=== PATIENT | female | born 1970 | race Caucasian/White ===

== ENCOUNTER 2016-09-07 10:59 | Emergency (ER) | payer BC ==
[2016-09-07] MEDS ORDERED: Sodium Chloride 0.9% 10 ML Syringe FLUSH PRN (11:10)
[2016-09-07] MEDS ORDERED: Sodium Chloride 0.9% 2.5 ML Syringe FLUSH PRN (11:10)
[2016-09-07] MEDS ORDERED: Aspirin 81 MG Tab.Chew PO ONE (11:10)
--- NOTE | 2016-09-07 11:14 | EDM.PDOC ---
<Mattie Brian - Last Filed: 09/07/16 11:43> ED HISTORY OF PRESENT ILLNESS - General Chief Complaint: Chest Pain Stated Complaint: CHEST PAIN Time Seen by Provider: 09/07/16 11:11 Source of Information: Reports: Patient History Limitations: Reports: No limitations - History of Present Illness INITIAL COMMENTS - FREE TEXT/NARRATIVE: HISTORY AND PHYSICAL: [46-year-old female sent in with sternal chest pain that occurred last night.] History of Present Illness: [The last month it has been several instances where midsternal chest pain has occurred her left arm has gotten numb and then resolve. She has not been evaluated for this. SHe does report shortness of breath and diaphoresis last night. SHe has shortness of breath with walking No known family history of heart disease Mother is alive with no heart problem Father 3 years ago and she is unaware of the cause] Review of Systems: As per history of present illness and below otherwise all systems reviewed and negative. Past medical history: As per history of present illness and as reviewed below otherwise noncontributory. Surgical history: As per history of present illness and as reviewed below otherwise noncontributory. Social history: No reported history of drug or alcohol abuse. Family history: As per history of present illness and as reviewed below otherwise noncontributory. Physical exam: Alert anxious female who is obese. Answering questions appropriately HEENT: Atraumatic, normocehpalic, pupils reactive, negative for conjunctival pallor or scleral icterus, mucous membranes moist, throat clear, neck supple, nontender, trachea midline. Lungs: Clear to auscultation, breath sounds equal bilaterally, chest non tender. Lungs are mildly diminished Heart: S1S2, regular, negative for clicks, rubs, or JVD. Abdomen: Soft, nondistended, nontender. Negative for masses or hepatossplenmegaly. Negative for costovertebral tenderness. Pelvis: Stable nontender. Genitourinary: Deferred. Rectal: Deferred Extremities: Atraumatic, negative for cords or calf pain. Good sensation to hands. Neurovascular unremarkable. Neuro: Awake, alert, oriented. Cranial nerves II through XII unremarkable. Cerebellum unremarkable. Motor and sensory unremarkable throughout. Exam nonfocal. I discussed the concerns with the elevated troponin with the patient and her the implications associated with this and the need for expert followup care. I have discussed her case with Dr. Holland operations advisor at [facility] in [place] and he has accepted the patient for direct admit. Dr. Beal has kindly discussed with the patient and her in the concerns with the elevated troponin level. Lovenox has been given. Nitro paste Diagnostics: [CBC CMP amylase lipase troponin PT/INR] Therapeutics: [Normal saline aspirin] Impression: [] Atypical chest pain Plan: [Transfer to [facility] per ground ambulance] Definitive disposition and diagnosis as appropriate pending reevaluation and review of above. Timing/Duration: Reports: Week(s): Severity: mild Location, General: Reports: chest Quality: Reports: Ache Improves with: Reports: None Worsens with: Reports: None - Related Data Allergies/ADRs: Allergies Allergy/AdvReac Type Severity Reaction Status Date / Time No Known Allergies Allergy Verified 09/07/16 11:12 Home Meds: Home Meds . [No Known Home Meds] 09/07/16 [History] ED ROS GENERAL - Review of Systems Review Of Systems: ROS reveals no pertinent complaints other than HPI. ED EXAM, GENERAL - Physical Exam Exam: See Below Course - Vital Signs Last Recorded V/S: Last Vital Signs Temp 36.6 C 09/07/16 11:00 Pulse 80 09/07/16 11:51 Resp 18 09/07/16 11:51 BP 138/91 H 09/07/16 11:51 Pulse Ox 96 09/07/16 11:51 - Orders/Labs/Meds Orders: Active Orders 24 hr Category Date Time Status Cardiac Monitoring [RC] . DIRECTED Care 09/07/16 11:09 Active EKG Documentation Completion [RC] STAT Care 09/07/16 11:09 Active Oxygen Therapy, ED [RC] ASDIRECTED Care 09/07/16 11:09 Active Sodium Chloride 0.9% [Saline Flush] Med 09/07/16 11:10 Active 10 ml FLUSH ASDIRECTED PRN Sodium Chloride 0.9% [Saline Flush] Med 09/07/16 11:10 Active 2.5 ml FLUSH ASDIRECTED PRN Saline Lock Insert [OM.PC] Stat Oth 09/07/16 11:09 Ordered Medication Orders Sodium Chloride (Saline Flush) 10 ml FLUSH ASDIRECTED PRN PRN Reason: Keep Vein Open Sodium Chloride (Saline Flush) 2.5 ml FLUSH ASDIRECTED PRN PRN Reason: Keep Vein Open Labs: Laboratory Tests 09/07/16 09/07/16 09/07/16 Range/Units 11:10 11:10 11:10 WBC 7.93 (4.0-11.0) K/uL RBC 5.04 (4.30-5.90) M/uL Hgb 15.5 (12.0-16.0) g/dL Hct 46.9 H (36.0-46.0) % MCV 93.1 (80.0-98.0) fL MCH 30.8 (27.0-32.0) pg MCHC 33.0 (31.0-37.0) g/dL RDW Std Deviation 44.7 (28.0-62.0) fl RDW Coeff of Gregory 13 (11.0-15.0) % Plt Count 130 L (150-400) K/uL MPV 8.90 (7.40-12.00) fL Neut % (Auto) 78.4 (48.0-80.0) % Lymph % (Auto) 15.3 L (16.0-40.0) % [place] % (Auto) 5.2 (0.0-15.0) % Eos % (Auto) 0.6 (0.0-7.0) % Baso % (Auto) 0.5 (0.0-1.5) % Neut # (Auto) 6.2 H (1.4-5.7) K/uL Lymph # (Auto) 1.2 (0.6-2.4) K/uL [place] # (Auto) 0.4 (0.0-0.8) K/uL Eos # (Auto) 0.1 (0.0-0.7) K/uL Baso # (Auto) 0.0 (0.0-0.1) K/uL Nucleated RBC % 0.0 /100WBC Nucleated RBCs # 0 K/uL INR 0.96 (0.86-1.11) Sodium 140 (136-146) mmol/L Potassium 3.5 (3.5-5.1) mmol/L Chloride 110 (98-110) mmol/L Carbon Dioxide 18 L (21-31) mmol/L BUN 12 (6.0-23.0) mg/dL Creatinine 0.8 (0.6-1.5) mg/dL Est Cr Clr Drug Dosing 84.54 mL/min Estimated GFR (MDRD) > 60.0 ml/min Glucose 240 H (60-110) mg/dL Calcium 8.8 (8.8-10.8) mg/dL Total Bilirubin 0.5 (0.1-1.5) mg/dL AST 28 (5-40) IU/L ALT 23 (8-54) IU/L Alkaline Phosphatase 95 (40-150) Troponin I (0.0-0.29) NG/ML Total Protein 6.6 (6.0-8.0) g/dL Albumin 3.8 (3.5-5.0) g/dL Globulin 2.8 (2.0-3.5) g/dL Albumin/Globulin Ratio 1.4 (1.3-2.8) Amylase 38 (10-90) U/L Lipase 14 (7-80) U/L Urine Color Urine Appearance Urine pH (5.0-8.0) Ur Specific [place] (1.001-1.035) Urine Protein (NEGATIVE) mg/dL Urine Glucose (UA) (NEGATIVE) mg/dL Urine Ketones (NEGATIVE) mg/dL Urine Occult Blood (NEGATIVE) Urine Nitrite (NEGATIVE) Urine Bilirubin (NEGATIVE) Urine Urobilinogen (<2.0) EU/dL Ur Leukocyte Esterase (NEGATIVE) Urine RBC (0-2/HPF) Urine WBC (0-5/HPF) Ur Epithelial Cells (NONE-FEW) Urine Bacteria (NEGATIVE) 09/07/16 09/07/16 Range/Units 11:10 11:57 WBC (4.0-11.0) K/uL RBC (4.30-5.90) M/uL Hgb (12.0-16.0) g/dL Hct (36.0-46.0) % MCV (80.0-98.0) fL MCH (27.0-32.0) pg MCHC (31.0-37.0) g/dL RDW Std Deviation (28.0-62.0) fl RDW Coeff of Gregory (11.0-15.0) % Plt Count (150-400) K/uL MPV (7.40-12.00) fL Neut % (Auto) (48.0-80.0) % Lymph % (Auto) (16.0-40.0) % [place] % (Auto) (0.0-15.0) % Eos % (Auto) (0.0-7.0) % Baso % (Auto) (0.0-1.5) % Neut # (Auto) (1.4-5.7) K/uL Lymph # (Auto) (0.6-2.4) K/uL [place] # (Auto) (0.0-0.8) K/uL Eos # (Auto) (0.0-0.7) K/uL Baso # (Auto) (0.0-0.1) K/uL Nucleated RBC % /100WBC Nucleated RBCs # K/uL INR (0.86-1.11) Sodium (136-146) mmol/L Potassium (3.5-5.1) mmol/L Chloride (98-110) mmol/L Carbon Dioxide (21-31) mmol/L BUN (6.0-23.0) mg/dL Creatinine (0.6-1.5) mg/dL Est Cr Clr Drug Dosing mL/min Estimated GFR (MDRD) ml/min Glucose (60-110) mg/dL Calcium (8.8-10.8) mg/dL Total Bilirubin (0.1-1.5) mg/dL AST (5-40) IU/L ALT (8-54) IU/L Alkaline Phosphatase (40-150) Troponin I 1.73 H* (0.0-0.29) NG/ML Total Protein (6.0-8.0) g/dL Albumin (3.5-5.0) g/dL Globulin (2.0-3.5) g/dL Albumin/Globulin Ratio (1.3-2.8) Amylase (10-90) U/L Lipase (7-80) U/L Urine Color YELLOW Urine Appearance CLEAR Urine pH 6.0 (5.0-8.0) Ur Specific [place] 1.025 (1.001-1.035) Urine Protein NEGATIVE (NEGATIVE) mg/dL Urine Glucose (UA) 250 H (NEGATIVE) mg/dL Urine Ketones NEGATIVE (NEGATIVE) mg/dL Urine Occult Blood TRACE-INTACT (NEGATIVE) Urine Nitrite NEGATIVE (NEGATIVE) Urine Bilirubin NEGATIVE (NEGATIVE) Urine Urobilinogen 0.2 (<2.0) EU/dL Ur Leukocyte Esterase SMALL (NEGATIVE) Urine RBC 1-2 (0-2/HPF) Urine WBC 45-50 (0-5/HPF) Ur Epithelial Cells FEW (NONE-FEW) Urine Bacteria FEW (NEGATIVE) Meds: Medications Generic Name Dose Route Start Last Admin Trade Name Freq PRN Reason Stop Dose Admin Sodium Chloride 10 ml 09/07/16 11:10 Saline Flush FLUSH ASDIRECTED PRN Keep Vein Open Sodium Chloride 2.5 ml 09/07/16 11:10 Saline Flush FLUSH ASDIRECTED PRN Keep Vein Open Discontinued Medications Generic Name Dose Route Start Last Admin Trade Name Freq PRN Reason Stop Dose Admin Aspirin 324 mg 09/07/16 11:10 09/07/16 11:15 Aspirin PO 09/07/16 11:11 324 mg ONETIME ONE Administration Enoxaparin Sodium 125 mg 09/07/16 11:42 09/07/16 11:49 Lovenox SUBCUT 09/07/16 11:43 125 mg ONETIME ONE Administration Nitroglycerin 1 gm 09/07/16 11:41 09/07/16 11:47 Nitro-Bid 2% TOP 09/07/16 11:42 1 gm ONETIME ONE Administration Departure - Departure Time of Disposition: 11:47 Disposition: DC/Tfer to Acute Hospital 02 Reason for Transfer *Q: Primary PCI Indicated Condition: good Clinical Impression: Acute coronary syndrome Acute myocardial infarction Qualifiers: Myocardial infarction ST status: non-ST elevation myocardial infarction Qualified Code(s): I21.4 - Non-ST elevation (NSTEMI) myocardial infarction Referrals: PCP,None [Primary Care Provider] - Forms: ED Department Discharge <Divya Beal - Last Filed: 09/07/16 12:43> ED HISTORY OF PRESENT ILLNESS - History of Present Illness INITIAL COMMENTS - FREE TEXT/NARRATIVE: Please note that the patient had a positive troponin so please addend the above impression to read Non- stemi OR ED ROS GENERAL - Review of Systems Review Of Systems: ROS reveals no pertinent complaints other than HPI. ED EXAM, GENERAL - Physical Exam Exam: See Below (See dictation) Departure - Departure Reason for Transfer *Q: Primary PCI Indicated Condition: good
--- NOTE | 2016-09-07 11:35 | CR ---
EXAMINATION: Portable chest radiograph. HISTORY: Shortness of breath. FINDINGS: The trachea is midline. The cardiomediastinal silhouette is within normal limits. No pulmonary infil trates, effusions or pneumothorax. Osseous structures appear unremarkable. IMPRESSION: No acute cardiopulmonary process.
[2016-09-07] MEDS ORDERED: Nitroglycerin 2% Oint 1 GM UD Packet TOP ONE (11:41)
[2016-09-07] MEDS ORDERED: Enoxaparin 150 MG/1 ML Syringe SUBCUT ONE (11:42)
[2016-09-07 11:49] LABS: CHLORIDE,CL 110 mmol/L (98-110); SODIUM,NA 140 mmol/L (136-146)
[2016-09-07 12:54] VITALS: BP 146/100
== END 2016-09-07 12:27 ==
LOC: MW.ED 10:59
DX: I24.9 Acute ischemic heart disease, unspecified (principal); I21.4 Non-ST elevation (NSTEMI) myocardial infarction
CPT/HCPCS: 71010; 80053; 81001; 82150; 83690; 84484; 85025; 85610; 93005; 99285; A9270; J1650

== ENCOUNTER 2016-09-18 13:48 | Emergency (ER) | payer BC ==
[2016-09-18] MEDS ORDERED: Sodium Chloride 0.9% 1,000 ML IV ONE ×3 (13:58→17:00)
[2016-09-18] MEDS ORDERED: Acetaminophen 325 MG Tab PO ONE (13:58)
[2016-09-18] MEDS ORDERED: Sodium Chloride 0.9% 2.5 ML Syringe FLUSH PRN (13:58)
[2016-09-18] MEDS ORDERED: Sodium Chloride 0.9% 10 ML Syringe FLUSH PRN (13:58)
--- NOTE | 2016-09-18 14:17 | EDM.PDOC ---
ED HPI GENERAL MEDICAL PROBLEM - General Chief Complaint: Fever Stated Complaint: FEVER Time Seen by Provider: 09/18/16 13:54 - History of Present Illness INITIAL COMMENTS - FREE TEXT/NARRATIVE: HISTORY AND PHYSICAL: History of present illness: Patient is a 46-year-old white female with recent cardiac catheter with angioplasty presents with concern of fever sore throat she states that over last 24 hours. She denies chest pain nausea vomiting states her temperature at home was 102 on arrival here is 100.4 and no cough no shortness of breath no abdominal pain no urinary symptoms Review of systems: As per history of present illness and below otherwise all systems reviewed and negative. Past medical history: As per history of present illness and as reviewed below otherwise noncontributory. Surgical history: As per history of present illness and as reviewed below otherwise noncontributory. Social history: No reported history of drug or alcohol abuse. Family history: As per history of present illness and as reviewed below otherwise noncontributory. Physical exam: HEENT: Atraumatic, normocephalic, pupils reactive, negative for conjunctival pallor or scleral icterus, mucous membranes moist, throat clear, neck supple, nontender, trachea midline. Lungs: Clear to auscultation, breath sounds equal bilaterally, chest nontender. Heart: S1S2, regular, negative for clicks, rubs, or JVD. Abdomen: Soft, nondistended, nontender. Negative for masses or hepatosplenomegaly. Negative for costovertebral tenderness. Pelvis: Stable nontender. Genitourinary: Deferred. Rectal: Deferred. Extremities: Atraumatic, negative for cords or calf pain. Neurovascular unremarkable. Neuro: Awake, alert, oriented. Cranial nerves II through XII unremarkable. Cerebellum unremarkable. Motor and sensory unremarkable throughout. Exam nonfocal. Diagnostics: CBC CMP chest x-ray rapid strep influenza screen EKG UA blood culture x2 urine culture Therapeutics: Normal saline 1 L bolus Impression: #1 history coronary artery disease #2 history of recent angioplasty with stent placement #3 fever Definitive disposition and diagnosis as appropriate pending reevaluation and review of above. head Pain Score (Numeric/FACES): 8 - Related Data Allergies Allergy/AdvReac Type Severity Reaction Status Date / Time codeine Allergy Hives Verified 09/18/16 13:58 Penicillins Allergy Hives Verified 09/18/16 13:58 Home Meds: Home Meds Aspirin 2 tab PO DAILY 09/18/16 [History] Carvedilol 3.125 mg PO BID 09/18/16 [History] Furosemide 20 mg PO DAILY 09/18/16 [History] Lisinopril 5 mg PO DAILY 09/18/16 [History] Prasugrel HCl [Effient] 10 mg PO DAILY 09/18/16 [History] atorvaSTATin [Lipitor] 40 mg PO DAILY 09/18/16 [History] Past Medical History - Past Health History Medical/Surgical History: Denies Medical/Surgical History Social & Family History - Family History Family Medical History: Noncontributory - Tobacco Use Smoking Status *Q: Current Every Day Smoker Years of Tobacco use: 10 Packs/Tins Daily: 0.5 - Recreational Drug Use Recreational Drug Use: No ED ROS GENERAL - Review of Systems Review Of Systems: ROS reveals no pertinent complaints other than HPI. ED EXAM, GENERAL - Physical Exam Exam: See Below (See dictation) Course - Vital Signs Last Recorded V/S: Last Vital Signs Temp 37.1 C 09/18/16 16:57 Pulse 71 09/18/16 17:09 Resp 18 09/18/16 16:57 BP 100/56 L 09/18/16 17:09 Pulse Ox 95 09/18/16 17:09 - Orders/Labs/Meds Orders: Active Orders 24 hr Category Date Time Status EKG Documentation Completion [RC] STAT Care 09/18/16 13:57 Active Pulse Oximetry [RC] ASDIRECTED Care 09/18/16 13:57 Active CULTURE BLOOD [BC] Stat Lab 09/18/16 14:10 Received CULTURE BLOOD [BC] Stat Lab 09/18/16 14:49 Received CULTURE URINE [RM] Stat Lab 09/18/16 15:00 Received Sodium Chloride 0.9% [Normal Saline] 1,000 ml Med 09/18/16 17:00 Active IV .Bolus Sodium Chloride 0.9% [Saline Flush] Med 09/18/16 13:58 Active 10 ml FLUSH ASDIRECTED PRN Sodium Chloride 0.9% [Saline Flush] Med 09/18/16 13:58 Active 2.5 ml FLUSH ASDIRECTED PRN Blood Culture x2 Reflex Set [OM.PC] Stat Oth 09/18/16 13:58 Ordered Saline Lock Insert [OM.PC] Stat Oth 09/18/16 13:57 Ordered Medication Orders Sodium Chloride (Normal Saline) 1,000 mls @ 999 mls/hr IV .Bolus ONE Stop: 09/18/16 18:00 Last Admin: 09/18/16 17:08 Dose: 999 mls/hr Sodium Chloride (Saline Flush) 10 ml FLUSH ASDIRECTED PRN PRN Reason: Keep Vein Open Sodium Chloride (Saline Flush) 2.5 ml FLUSH ASDIRECTED PRN PRN Reason: Keep Vein Open Labs: Laboratory Tests 09/18/16 09/18/16 09/18/16 Range/Units 14:10 14:10 14:10 WBC 13.62 H (4.0-11.0) K/uL RBC 4.63 (4.30-5.90) M/uL Hgb 14.1 (12.0-16.0) g/dL Hct 43.2 (36.0-46.0) % MCV 93.3 (80.0-98.0) fL MCH 30.5 (27.0-32.0) pg MCHC 32.6 (31.0-37.0) g/dL RDW Std Deviation 44.8 (28.0-62.0) fl RDW Coeff of Gregory 13 (11.0-15.0) % Plt Count 141 L (150-400) K/uL MPV 9.00 (7.40-12.00) fL Neut % (Auto) 81.0 H (48.0-80.0) % Lymph % (Auto) 11.1 L (16.0-40.0) % [place] % (Auto) 7.6 (0.0-15.0) % Eos % (Auto) 0.1 (0.0-7.0) % Baso % (Auto) 0.2 (0.0-1.5) % Neut # (Auto) 11.0 H (1.4-5.7) K/uL Lymph # (Auto) 1.5 (0.6-2.4) K/uL [place] # (Auto) 1.0 H (0.0-0.8) K/uL Eos # (Auto) 0.0 (0.0-0.7) K/uL Baso # (Auto) 0.0 (0.0-0.1) K/uL Nucleated RBC % 0.0 /100WBC Nucleated RBCs # 0 K/uL INR 1.05 (0.86-1.11) Lactate 1.7 (0.20-2.00) mmol/L Sodium (136-146) mmol/L Potassium (3.5-5.1) mmol/L Chloride (98-110) mmol/L Carbon Dioxide (21-31) mmol/L BUN (6.0-23.0) mg/dL Creatinine (0.6-1.5) mg/dL Est Cr Clr Drug Dosing mL/min Estimated GFR (MDRD) ml/min Glucose (60-110) mg/dL Calcium (8.8-10.8) mg/dL Total Bilirubin (0.1-1.5) mg/dL AST (5-40) IU/L ALT (8-54) IU/L Alkaline Phosphatase (40-150) Total Protein (6.0-8.0) g/dL Albumin (3.5-5.0) g/dL Globulin (2.0-3.5) g/dL Albumin/Globulin Ratio (1.3-2.8) Urine Color Urine Appearance Urine pH (5.0-8.0) Ur Specific [place] (1.001-1.035) Urine Protein (NEGATIVE) mg/dL Urine Glucose (UA) (NEGATIVE) mg/dL Urine Ketones (NEGATIVE) mg/dL Urine Occult Blood (NEGATIVE) Urine Nitrite (NEGATIVE) Urine Bilirubin (NEGATIVE) Urine Urobilinogen (<2.0) EU/dL Ur Leukocyte Esterase (NEGATIVE) Urine RBC (0-2/HPF) Urine WBC (0-5/HPF) Ur Epithelial Cells (NONE-FEW) Urine Bacteria (NEGATIVE) Urinalysis Comment 09/18/16 09/18/16 Range/Units 14:10 15:00 WBC (4.0-11.0) K/uL RBC (4.30-5.90) M/uL Hgb (12.0-16.0) g/dL Hct (36.0-46.0) % MCV (80.0-98.0) fL MCH (27.0-32.0) pg MCHC (31.0-37.0) g/dL RDW Std Deviation (28.0-62.0) fl RDW Coeff of [place] (11.0-15.0) % Plt Count (150-400) K/uL MPV (7.40-12.00) fL Neut % (Auto) (48.0-80.0) % Lymph % (Auto) (16.0-40.0) % [place] % (Auto) (0.0-15.0) % Eos % (Auto) (0.0-7.0) % Baso % (Auto) (0.0-1.5) % Neut # (Auto) (1.4-5.7) K/uL Lymph # (Auto) (0.6-2.4) K/uL [place] # (Auto) (0.0-0.8) K/uL Eos # (Auto) (0.0-0.7) K/uL Baso # (Auto) (0.0-0.1) K/uL Nucleated RBC % /100WBC Nucleated RBCs # K/uL INR (0.86-1.11) Lactate (0.20-2.00) mmol/L Sodium 136 (136-146) mmol/L Potassium 4.2 (3.5-5.1) mmol/L Chloride 103 (98-110) mmol/L Carbon Dioxide 22 (21-31) mmol/L BUN 12 (6.0-23.0) mg/dL Creatinine 0.8 (0.6-1.5) mg/dL Est Cr Clr Drug Dosing 90.85 mL/min Estimated GFR (MDRD) > 60.0 ml/min Glucose 98 (60-110) mg/dL Calcium 9.1 (8.8-10.8) mg/dL Total Bilirubin 1.1 (0.1-1.5) mg/dL AST 12 (5-40) IU/L ALT 17 (8-54) IU/L Alkaline Phosphatase 92 (40-150) Total Protein 6.8 (6.0-8.0) g/dL Albumin 3.9 (3.5-5.0) g/dL Globulin 2.9 (2.0-3.5) g/dL Albumin/Globulin Ratio 1.3 (1.3-2.8) Urine Color YELLOW Urine Appearance CLEAR Urine pH 5.5 (5.0-8.0) Ur Specific [place] 1.010 (1.001-1.035) Urine Protein NEGATIVE (NEGATIVE) mg/dL Urine Glucose (UA) NEGATIVE (NEGATIVE) mg/dL Urine Ketones NEGATIVE (NEGATIVE) mg/dL Urine Occult Blood NEGATIVE (NEGATIVE) Urine Nitrite NEGATIVE (NEGATIVE) Urine Bilirubin NEGATIVE (NEGATIVE) Urine Urobilinogen 0.2 (<2.0) EU/dL Ur Leukocyte Esterase TRACE (NEGATIVE) Urine RBC 0-1 (0-2/HPF) Urine WBC 0-1 (0-5/HPF) Ur Epithelial Cells OCCASIONAL (NONE-FEW) Urine Bacteria FEW (NEGATIVE) Urinalysis Comment Meds: Medications Generic Name Dose Route Start Last Admin Trade Name Freq PRN Reason Stop Dose Admin Sodium Chloride 1,000 mls @ 999 mls/hr 09/18/16 17:00 09/18/16 17:08 Normal Saline IV 09/18/16 18:00 999 mls/hr .Bolus ONE Administration Sodium Chloride 10 ml 09/18/16 13:58 Saline Flush FLUSH ASDIRECTED PRN Keep Vein Open Sodium Chloride 2.5 ml 09/18/16 13:58 Saline Flush FLUSH ASDIRECTED PRN Keep Vein Open Discontinued Medications Generic Name Dose Route Start Last Admin Trade Name Freq PRN Reason Stop Dose Admin Acetaminophen 650 mg 09/18/16 13:58 09/18/16 14:22 Tylenol PO 09/18/16 13:59 650 mg NOW ONE Administration Sodium Chloride 1,000 mls @ 999 mls/hr 09/18/16 13:58 09/18/16 14:16 Normal Saline IV 09/18/16 14:58 999 mls/hr STAT ONE Administration Sodium Chloride 1,000 mls @ 999 mls/hr 09/18/16 15:31 09/18/16 15:38 Normal Saline IV 09/18/16 16:31 999 mls/hr .Bolus ONE Administration Ceftriaxone Sodium/Dextrose 1 50 mls @ 100 mls/hr 09/18/16 15:33 09/18/16 15: 42 gm/ Premix IV 09/18/16 16:02 100 mls/hr ONETIME ONE Administration Departure - Departure Time of Disposition: 17:17 Disposition: Home, Self-Care 01 Condition: good Clinical Impression: Streptococcal pharyngitis, Dehydration - Discharge Information Forms: ED Department Discharge Additional Instructions: The following information is given to patients seen in the emergency department who are being discharged to home. This information is to outline your options for follow-up care. We provide all patients seen in our emergency department with a follow-up referral. The need for follow-up, as well as the timing and circumstances, are variable depending upon the specifics of your emergency department visit. If you don't have a primary care physician on staff, we will provide you with a referral. We always advise you to contact your personal physician following an emergency department visit to inform them of the circumstance of the visit and for follow-up with them and/or the need for any referrals to a consulting specialist. The emergency department will also refer you to a specialist when appropriate. This referral assures that you have the opportunity for followup care with a specialist. All of these measure are taken in an effort to provide you with optimal care, which includes your followup. Under all circumstances we always encourage you to contact your private physician who remains a resource for coordinating your care. When calling for followup care, please make the office aware that this follow-up is from your recent emergency room visit. If for any reason you are refused follow-up, please contact the [facility] emergency department at and asked to speak to the emergency department charge nurse. Keflex as prescribed push fluids follow up primary medical doctor in one to 2 days return as needed as discussed - My Orders Last 24 Hours: My Active Orders 09/18/16 13:57 EKG Documentation Completion [RC] STAT Pulse Oximetry [RC] ASDIRECTED Saline Lock Insert [OM.PC] Stat 09/18/16 13:58 Sodium Chloride 0.9% [Saline Flush] 10 ml FLUSH ASDIRECTED PRN Sodium Chloride 0.9% [Saline Flush] 2.5 ml FLUSH ASDIRECTED PRN Blood Culture x2 Reflex Set [OM.PC] Stat 09/18/16 14:10 CULTURE BLOOD [BC] Stat 09/18/16 14:49 CULTURE BLOOD [BC] Stat 09/18/16 15:00 CULTURE URINE [RM] Stat 09/18/16 17:00 Sodium Chloride 0.9% [Normal Saline] 1,000 ml IV .Bolus - Assessment/Plan Last 24 Hours: My Active Orders 09/18/16 13:57 EKG Documentation Completion [RC] STAT Pulse Oximetry [RC] ASDIRECTED Saline Lock Insert [OM.PC] Stat 09/18/16 13:58 Sodium Chloride 0.9% [Saline Flush] 10 ml FLUSH ASDIRECTED PRN Sodium Chloride 0.9% [Saline Flush] 2.5 ml FLUSH ASDIRECTED PRN Blood Culture x2 Reflex Set [OM.PC] Stat 09/18/16 14:10 CULTURE BLOOD [BC] Stat 09/18/16 14:49 CULTURE BLOOD [BC] Stat 09/18/16 15:00 CULTURE URINE [RM] Stat 09/18/16 17:00 Sodium Chloride 0.9% [Normal Saline] 1,000 ml IV .Bolus
--- NOTE | 2016-09-18 14:45 | CR ---
EXAMINATION: Two-view chest (PA and Lateral views). HISTORY: Shortness of breath. FINDINGS: The trachea is midline. The cardiomediastinal silhouette is within normal limits. No pulmonary infil trates, effusions or pneumothorax. Osseous structures appear unremarkable. IMPRESSION: No acute cardiopulmonary process.
[2016-09-18 15:05] LABS: CHLORIDE,CL 103 mmol/L (98-110); SODIUM,NA 136 mmol/L (136-146)
[2016-09-18] MEDS ORDERED: cefTRIAXone 1 GM in Premix Bag 1 BAG IV ONE (15:33)
[2016-09-18 18:04] VITALS: BP 110/63
== END 2016-09-18 17:55 | disposition home or self-care (01) ==
LOC: MW.ED 13:48
DX: J02.0 Streptococcal pharyngitis (principal); E86.0 Dehydration; I25.10 Atherosclerotic heart disease of native coronary artery without angina pectoris; F17.210 Nicotine dependence, cigarettes, uncomplicated; Z88.0 Allergy status to penicillin; Z79.82 Long term (current) use of aspirin; Z95.5 Presence of coronary angioplasty implant and graft; Z88.5 Allergy status to narcotic agent
CPT/HCPCS: 36415; 71020; 80053; 81001; 83605; 85025; 85610; 87040; 87086; 87804; 87880; 93005; 96361; 96365; 99284; A9270; J0696; J7040

== ENCOUNTER 2018-01-20 21:00 | Emergency (ER) | payer BC ==
[2018-01-20] MEDS ORDERED: Sodium Chloride 0.9% 10 ML Syringe FLUSH PRN (21:16)
[2018-01-20] MEDS ORDERED: Sodium Chloride 0.9% 2.5 ML Syringe FLUSH PRN (21:16)
--- NOTE | 2018-01-20 21:19 | EDM.PDOC ---
ED HPI GENERAL MEDICAL PROBLEM - General Chief Complaint: Respiratory Problem Stated Complaint: TROUBLE BREATHING. Time Seen by Provider: 01/20/18 21:09 - History of Present Illness INITIAL COMMENTS - FREE TEXT/NARRATIVE: HISTORY AND PHYSICAL: History of present illness: The patient is a 48-year-old female with a history of hypertension hypercholesterolemia and coronary artery disease with angioplasty and 3 stents in August 2016 at [facility] and who presents with complaints of a dry hacking cough for 2 days. She says she only has chest pain when she is coughing and she's had no fevers abdominal pain but she has had some posttussive vomiting. She has no back pain she's had no chills and she is a half a pack per day smoker of cigarettes. She's been eating and drinking normally. 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 She's had no leg pain or swelling. Patient has no pre-existing pulmonary issues but has been a longtime smoker. Patient is on anticoagulation therapy since her cardiac event and is unsure if she will come off. She's not having any bleeding issues. Review of systems: As per history of present illness and below otherwise all systems reviewed and negative. Past medical history: As per history of present illness and as reviewed below otherwise noncontributory. Surgical history: As per history of present illness and as reviewed below otherwise noncontributory. Social history: No reported history of drug or alcohol abuse. Family history: As per history of present illness and as reviewed below otherwise noncontributory. Physical exam: General: Well-developed well-nourished female who is overweight and nontoxic and speaking clearly in the ED. Vital signs have been reviewed by me HEENT: Atraumatic, normocephalic, negative for conjunctival pallor or scleral icterus, mucous membranes moist, throat clear, neck supple, nontender, trachea midline. Lungs: Clear to auscultation diminished in the bases bilaterally but no wheezing rales rhonchi, breath sounds equal bilaterally, chest nontender. Heart: S1S2, regular rate and rhythm no overt murmurs Abdomen: Soft, nondistended, nontender. Negative for masses or hepatosplenomegaly. NABS Pelvis: Stable nontender. Genitourinary: Deferred. Rectal: Deferred. Extremities: Atraumatic, negative for cords or calf pain. Neurovascular unremarkable. No pedal edema or leg asymmetry Neuro: Awake, alert, oriented. Cranial nerves II through XII unremarkable. Cerebellum unremarkable. Motor and sensory unremarkable throughout. Exam nonfocal. Diagnostics: EKG CBC CMP INR lactic acid troponin BNP chest x-ray Therapeutics: IV O2 monitor DuoNeb IV Medrol spacer and spacer teaching Patient will be given a spacer as well as a Medrol Dosepak and albuterol for home. She was up her cough medication which she declines. I've advised her on pushing hydration reducing and/or limiting smoking and following up with her provider. Impression: Acute Bronchitis Definitive disposition and diagnosis as appropriate pending reevaluation and review of above. Chest Pain Score (Numeric/FACES): 6 - Related Data Allergies Allergy/AdvReac Type Severity Reaction Status Date / Time codeine Allergy Hives Verified 01/20/18 21:13 Penicillins Allergy Hives Verified 01/20/18 21:13 Home Meds: Home Meds Aspirin 2 tab PO DAILY 09/18/16 [History] Carvedilol 3.125 mg PO BID 09/18/16 [History] Furosemide 20 mg PO DAILY 09/18/16 [History] Lisinopril 5 mg PO DAILY 09/18/16 [History] Prasugrel HCl [Effient] 10 mg PO DAILY 09/18/16 [History] atorvaSTATin [Lipitor] 40 mg PO DAILY 09/18/16 [History] Past Medical History - Past Health History Medical/Surgical History: Denies Medical/Surgical History Cardiovascular History: Reports: Afib, OH, Other (See Below) Other Cardiovascular History: CHF - Past Surgical History Cardiovascular Surgical History: Reports: Coronary Artery Stent Social & Family History - Family History Family Medical History: Noncontributory - Tobacco Use Smoking Status *Q: Current Every Day Smoker Years of Tobacco use: 30 Packs/Tins Daily: 0.5 - Caffeine Use Caffeine Use: Reports: None - Recreational Drug Use Recreational Drug Use: No ED ROS GENERAL - Review of Systems Review Of Systems: ROS reveals no pertinent complaints other than HPI. ED EXAM, GENERAL - Physical Exam Exam: See Below (see dictation) Course - Vital Signs Last Recorded V/S: Last Vital Signs Temp 36.2 C 01/20/18 21:20 Pulse 85 01/20/18 22:52 Resp 18 01/20/18 22:52 BP 122/74 01/20/18 22:52 Pulse Ox 94 L 01/20/18 22:52 - Orders/Labs/Meds Orders: Active Orders 24 hr Category Date Time Status Cardiac Monitoring [RC] . DIRECTED Care 01/20/18 21:16 Active Communication Order [RC] STAT Care 01/20/18 22:52 Active Communication Order [RC] STAT Care 01/20/18 23:24 Ordered EKG Documentation Completion [RC] STAT Care 01/20/18 21:16 Active Oxygen Therapy, ED [RC] ASDIRECTED Care 01/20/18 21:16 Active Pulse Oximetry [RC] ASDIRECTED Care 01/20/18 21:16 Active RT Aerosol Therapy [RC] ASDIRECTED Care 01/20/18 21:16 Active Chest 2V [CR] Stat Exams 01/20/18 21:16 Taken Sodium Chloride 0.9% [Saline Flush] Med 01/20/18 21:16 Active 10 ml FLUSH ASDIRECTED PRN Sodium Chloride 0.9% [Saline Flush] Med 01/20/18 21:16 Active 2.5 ml FLUSH ASDIRECTED PRN Saline Lock Insert [OM.PC] Stat Oth 01/20/18 21:16 Ordered Medication Orders Sodium Chloride (Saline Flush) 10 ml FLUSH ASDIRECTED PRN PRN Reason: Keep Vein Open Sodium Chloride (Saline Flush) 2.5 ml FLUSH ASDIRECTED PRN PRN Reason: Keep Vein Open Labs: Laboratory Tests 01/20/18 01/20/18 01/20/18 Range/Units 21:30 21:30 21:30 WBC 6.94 (4.0-11.0) K/uL RBC 5.00 (4.30-5.90) M/uL Hgb 15.4 (12.0-16.0) g/dL Hct 46.1 H (36.0-46.0) % MCV 92.2 (80.0-98.0) fL MCH 30.8 (27.0-32.0) pg MCHC 33.4 (31.0-37.0) g/dL RDW Std Deviation 44.6 (28.0-62.0) fl RDW Coeff of Gregory 13 (11.0-15.0) % Plt Count 130 L (150-400) K/uL MPV 9.10 (7.40-12.00) fL Neut % (Auto) 59.6 (48.0-80.0) % Lymph % (Auto) 28.7 (16.0-40.0) % [place] % (Auto) 9.1 (0.0-15.0) % Eos % (Auto) 1.9 (0.0-7.0) % Baso % (Auto) 0.7 (0.0-1.5) % Neut # (Auto) 4.1 (1.4-5.7) K/uL Lymph # (Auto) 2.0 (0.6-2.4) K/uL [place] # (Auto) 0.6 (0.0-0.8) K/uL Eos # (Auto) 0.1 (0.0-0.7) K/uL Baso # (Auto) 0.1 (0.0-0.1) K/uL Nucleated RBC % 0.0 /100WBC Nucleated RBCs # 0 K/uL INR 0.95 Lactate (0.20-2.00) mmol/L Sodium 140 (136-145) mmol/L Potassium 4.0 (3.5-5.1) mmol/L Chloride 105 (98-107) mmol/L Carbon Dioxide 25.2 (21.0-32.0) mmol/L BUN 14 (7.0-18.0) mg/dL Creatinine 1.0 (0.6-1.0) mg/dL Est Cr Clr Drug Dosing 71.12 mL/min Estimated GFR (MDRD) 58.9 ml/min Glucose 108 H (74-106) mg/dL Calcium 9.1 (8.5-10.1) mg/dL Total Bilirubin 0.5 (0.2-1.0) mg/dL AST 20 (15-37) IU/L ALT 31 (14-63) IU/L Alkaline Phosphatase 128 H (46-116) U/L Troponin I < 0.050 (0.000-0.056) ng/mL B-Natriuretic Peptide (<100) PG/ML Total Protein 6.7 (6.4-8.2) g/dL Albumin 3.6 (3.4-5.0) g/dL Globulin 3.1 (2.0-3.5) g/dL Albumin/Globulin Ratio 1.2 L (1.3-2.8) 01/20/18 01/20/18 Range/Units 21:30 21:30 WBC (4.0-11.0) K/uL RBC (4.30-5.90) M/uL Hgb (12.0-16.0) g/dL Hct (36.0-46.0) % MCV (80.0-98.0) fL MCH (27.0-32.0) pg MCHC (31.0-37.0) g/dL RDW Std Deviation (28.0-62.0) fl RDW Coeff of Gregory (11.0-15.0) % Plt Count (150-400) K/uL MPV (7.40-12.00) fL Neut % (Auto) (48.0-80.0) % Lymph % (Auto) (16.0-40.0) % [place] % (Auto) (0.0-15.0) % Eos % (Auto) (0.0-7.0) % Baso % (Auto) (0.0-1.5) % Neut # (Auto) (1.4-5.7) K/uL Lymph # (Auto) (0.6-2.4) K/uL [place] # (Auto) (0.0-0.8) K/uL Eos # (Auto) (0.0-0.7) K/uL Baso # (Auto) (0.0-0.1) K/uL Nucleated RBC % /100WBC Nucleated RBCs # K/uL INR Lactate 1.7 (0.20-2.00) mmol/L Sodium (136-145) mmol/L Potassium (3.5-5.1) mmol/L Chloride (98-107) mmol/L Carbon Dioxide (21.0-32.0) mmol/L BUN (7.0-18.0) mg/dL Creatinine (0.6-1.0) mg/dL Est Cr Clr Drug Dosing mL/min Estimated GFR (MDRD) ml/min Glucose (74-106) mg/dL Calcium (8.5-10.1) mg/dL Total Bilirubin (0.2-1.0) mg/dL AST (15-37) IU/L ALT (14-63) IU/L Alkaline Phosphatase (46-116) U/L Troponin I (0.000-0.056) ng/mL B-Natriuretic Peptide < 15 (<100) PG/ML Total Protein (6.4-8.2) g/dL Albumin (3.4-5.0) g/dL Globulin (2.0-3.5) g/dL Albumin/Globulin Ratio (1.3-2.8) Meds: Medications Generic Name Dose Route Start Last Admin Trade Name Freq PRN Reason Stop Dose Admin Sodium Chloride 10 ml 01/20/18 21:16 Saline Flush FLUSH ASDIRECTED PRN Keep Vein Open Sodium Chloride 2.5 ml 01/20/18 21:16 Saline Flush FLUSH ASDIRECTED PRN Keep Vein Open Discontinued Medications Generic Name Dose Route Start Last Admin Trade Name Freq PRN Reason Stop Dose Admin Albuterol/Ipratropium 3 ml 01/20/18 21:16 01/20/18 21:29 Duoneb 3.0-0.5 Mg/3 Ml NEB 01/20/18 21:17 3 ml ONETIME ONE Administration Methylprednisolone Sodium Succinate 125 mg 01/20/18 22:49 01/20/18 22:54 Solu-Medrol IVPUSH 01/20/18 22:50 125 mg ONETIME ONE Administration Departure - Departure Time of Disposition: 23:25 Disposition: Home, Self-Care 01 Condition: Good Clinical Impression: Acute bronchitis Qualifiers: Bronchitis organism: unspecified organism Qualified Code(s): J20.9 - Acute bronchitis, unspecified - Discharge Information Instructions: Acute Bronchitis, Adult, [id number] Referrals: PCP,None [Primary Care Provider] - Forms: ED Department Discharge Additional Instructions: The following information is given to patients seen in the emergency department who are being discharged to home. This information is to outline your options for follow-up care. We provide all patients seen in our emergency department with a follow-up referral. The need for follow-up, as well as the timing and circumstances, are variable depending upon the specifics of your emergency department visit. If you don't have a primary care physician on staff, we will provide you with a referral. We always advise you to contact your personal physician following an emergency department visit to inform them of the circumstance of the visit and for follow-up with them and/or the need for any referrals to a consulting specialist. The emergency department will also refer you to a specialist when appropriate. This referral assures that you have the opportunity for followup care with a specialist. All of these measure are taken in an effort to provide you with optimal care, which includes your followup. Under all circumstances we always encourage you to contact your private physician who remains a resource for coordinating your care. When calling for followup care, please make the office aware that this follow-up is from your recent emergency room visit. If for any reason you are refused follow-up, please contact the [facility] emergency department at and ask to speak to the emergency department charge nurse. [facility] Primary care- Internal Medicine and Family [address] [id number] Please use all medications as prescribed and use the spacer with the inhaler. Please call and follow-up with your provider in the clinic in the next few days for reevaluation and further care. Return to ER as needed and as discussed. Please try to reduce and/or quit smoking. Push hydration. You have been given an albuterol inhaler, Medrol Dosepak,via the [employer] and a prescription for Tessalon Perles that you can fill to take for your cough . - My Orders Last 24 Hours: My Active Orders 01/20/18 21:16 Cardiac Monitoring [RC] . DIRECTED EKG Documentation Completion [RC] STAT Oxygen Therapy, ED [RC] ASDIRECTED Pulse Oximetry [RC] ASDIRECTED RT Aerosol Therapy [RC] ASDIRECTED Chest 2V [CR] Stat Sodium Chloride 0.9% [Saline Flush] 10 ml FLUSH ASDIRECTED PRN Sodium Chloride 0.9% [Saline Flush] 2.5 ml FLUSH ASDIRECTED PRN Saline Lock Insert [OM.PC] Stat 01/20/18 22:52 Communication Order [RC] STAT 01/20/18 23:24 Communication Order [RC] STAT - Assessment/Plan Last 24 Hours: My Active Orders 01/20/18 21:16 Cardiac Monitoring [RC] . DIRECTED EKG Documentation Completion [RC] STAT Oxygen Therapy, ED [RC] ASDIRECTED Pulse Oximetry [RC] ASDIRECTED RT Aerosol Therapy [RC] ASDIRECTED Chest 2V [CR] Stat Sodium Chloride 0.9% [Saline Flush] 10 ml FLUSH ASDIRECTED PRN Sodium Chloride 0.9% [Saline Flush] 2.5 ml FLUSH ASDIRECTED PRN Saline Lock Insert [OM.PC] Stat 01/20/18 22:52 Communication Order [RC] STAT 01/20/18 23:24 Communication Order [RC] STAT
[2018-01-20] MEDS: Albuterol/Ipratropium 3.0-0.5 MG/3 ML Neb Soln NEB ONE (21:29)
[2018-01-20 22:06] LABS: CHLORIDE,CL 105 mmol/L (98-107); SODIUM,NA 140 mmol/L (136-145)
[2018-01-20] MEDS: methylPREDNISolone Sodium Succinate 125 MG/2 ML SDV IVPUSH ONE (22:54)
[2018-01-20 22:57] VITALS: BP 122/74
--- NOTE | 2018-01-21 12:56 | CR ---
EXAM DATE: 01/20/18 PATIENT'S AGE: 48 Patient: ROLANDO HOGAN Facility: [place], [place] Site . Site : 1970 Study: XRay Chest [id number]/[id number] 10:51:40 PM Ordering Physician: Emigdio Stokes Final Report: INDICATION: Shortness of breath, chest tightness TECHNIQUE: Chest 2 views. COMPARISON: 09/18/16 FINDINGS: Cardiovascular and mediastinum: Heart size and vasculature are normal in caliber and appearance. Mediastinum is within normal limits. Lungs and pleural spaces: Lungs are clear. No sign of infiltrate or mass. No sign of pleural effusion. No pneumothorax. Bones and soft tissues: No significant findings. IMPRESSION: Unremarkable chest. Dictated by: Ed Wen MD @ 01/20/2018 23:19:40 (Electronic Signature) Report Signed by Proxy. CABRINI MEDICAL CENTERCharlie
== END 2018-01-20 23:35 | disposition home or self-care (01) ==
LOC: MW.ED 21:00
DX: J20.9 Acute bronchitis, unspecified (principal); I11.0 Hypertensive heart disease with heart failure; I50.9 Heart failure, unspecified; E78.00 Pure hypercholesterolemia, unspecified; I25.10 Atherosclerotic heart disease of native coronary artery without angina pectoris; F17.210 Nicotine dependence, cigarettes, uncomplicated; I48.91 Unspecified atrial fibrillation; Z88.5 Allergy status to narcotic agent; Z95.5 Presence of coronary angioplasty implant and graft; Z88.0 Allergy status to penicillin; Z79.82 Long term (current) use of aspirin; Z79.899 Other long term (current) drug therapy
CPT/HCPCS: 36415; 71046; 80053; 83605; 83880; 84484; 85025; 85610; 96374; 99285; J2930; 94640; J7620-GY

== ENCOUNTER 2018-11-08 19:42 | Emergency (ER) | payer BC ==
[2018-11-08] MEDS ORDERED: Sodium Chloride 0.9% 10 ML Syringe FLUSH PRN (20:24)
[2018-11-08] MEDS ORDERED: Albuterol/Ipratropium 3.0-0.5 MG/3 ML Neb Soln NEB ONE (20:24)
[2018-11-08] MEDS ORDERED: Pantoprazole 40 MG Vial IVPUSH ONE (20:24)
[2018-11-08] MEDS ORDERED: Sodium Chloride 0.9% 1,000 ML IV ONE (20:24)
[2018-11-08] MEDS ORDERED: Ondansetron 4 MG/2 ML SDV IVPUSH ONE (20:24)
[2018-11-08] MEDS ORDERED: Sodium Chloride 0.9% 2.5 ML Syringe FLUSH PRN (20:24)
--- NOTE | 2018-11-08 20:28 | EDM.PDOC ---
ED HPI GENERAL MEDICAL PROBLEM - General Chief Complaint: Chest Pain Stated Complaint: PT HAS FLU SYMPTOMS Time Seen by Provider: 11/08/18 19:50 - History of Present Illness INITIAL COMMENTS - FREE TEXT/NARRATIVE: HISTORY AND PHYSICAL: History of present illness: The patient is a 48-year-old female who is known to this ED as she has been here before for bronchitis and asthma exacerbations as well as cardiac issues and she has a history of coronary artery disease with angioplasty and stents in August 2016, hypertension and hypercholesterolemia and is supposed to be on Effient , which she has not tolerated her meds in the last few days, and presents with 4 days of occasional cough, acid reflux symptoms, nausea vomiting and diarrhea as well as diffuse abdominal pain. She says she is not short of breath but she has had a hacking cough which is not her primary concern and she is more concerned about the nausea and vomiting and says that she has not been able to take anything by mouth for the last 2 days. She tried a site of workshop as well as tomato soup today and she did not tolerate it. She says that her diarrhea is watery and she had at least 3 episodes today and her abdominal pain is diffuse and not localized upper or lower right or left. She is only gone to the bathroom and urinated a couple of times today. She is not lightheaded or dizzy and she has no chest pain on my evaluation. She is a known smoker of half a pack a day and does have an inhaler at home for her asthma but has not used it. She says she has had an intermittent cough but she is not concerned about that and she's had no sore throat or nasal drainage. The patient says that she has not followed up with her dinkey brakeman at [facility] in about a year. Review of systems: As per history of present illness and below otherwise all systems reviewed and negative. Past medical history: As per history of present illness and as reviewed below otherwise noncontributory. Surgical history: As per history of present illness and as reviewed below otherwise noncontributory. Social history: No reported history of drug or alcohol abuse. Family history: As per history of present illness and as reviewed below otherwise noncontributory. Physical exam: General: Well-developed well-nourished overweight female who is nontoxic and speaking clearly in the ED. She is not breathless and vital signs are noted by me HEENT: Atraumatic, normocephalic, pupils reactive, negative for conjunctival pallor or scleral icterus, mucous membranes tacky, throat clear, neck supple, nontender, trachea midline. Lungs: Clear to auscultation with occasional wheeze at the bases right greater than left, breath sounds equal bilaterally, chest nontender. Heart: S1S2, regular rate and rhythm no overt murmurs, negative for clicks, rubs , or JVD. Abdomen: Soft, nondistended, nontender. Bowel sounds are hypoactive and on palpation I cannot elicit the pain and there is no tympany on percussion nor any rebound or guarding. Negative for masses or hepatosplenomegaly. Negative for costovertebral tenderness. Pelvis: Stable nontender. Genitourinary: Deferred. Rectal: Deferred. Extremities: Atraumatic, negative for cords or calf pain. Neurovascular unremarkable. No pedal edema or leg asymmetry Neuro: Awake, alert, oriented. Cranial nerves II through XII unremarkable. Cerebellum unremarkable. Motor and sensory unremarkable throughout. Exam nonfocal. Diagnostics: EKG abdominal films with chest x-ray UA with reflex CBC CMP amylase lipase troponin Therapeutics: IV IV fluids Zofran Protonix duo neb Patient refused her duo neb Please note that after all testing was ordered the patient refused all of the above x-rays labs and medications as well as IV placement and the only thing that she would allow us to do as the EKG. She is aware of my concerns and accepts them and says that as long as the EKG is okay she would like to go. She was offered ODT Zofran which she also refuses. Impression: Vomiting and diarrhea, abdominal pain refusing care Definitive disposition and diagnosis as appropriate pending reevaluation and review of above. chest Pain Score (Numeric/FACES): 5 abdomen Pain Score (Numeric/FACES): 7 - Related Data Allergies Allergy/AdvReac Type Severity Reaction Status Date / Time codeine Allergy Hives Verified 11/08/18 20:05 Penicillins Allergy Hives Verified 11/08/18 20:05 Home Meds: Home Meds Aspirin 1 tab PO DAILY 09/18/16 [History] Lisinopril 5 mg PO DAILY 09/18/16 [History] Prasugrel HCl [Effient] 10 mg PO DAILY 09/18/16 [History] atorvaSTATin [Lipitor] 40 mg PO DAILY 09/18/16 [History] Past Medical History - Past Health History Medical/Surgical History: Denies Medical/Surgical History Cardiovascular History: Reports: Afib, Heart Failure, OH, Stents Other Cardiovascular History: 3 stents on 08/2016 Respiratory History: Reports: None Gastrointestinal History: Reports: None Genitourinary History: Reports: None CHEMICAL CHECKER History: Reports: None Musculoskeletal History: Reports: None Neurological History: Reports: None Psychiatric History: Reports: None Endocrine/Metabolic History: Reports: Obesity/BMI 30+ Hematologic History: Reports: None Immunologic History: Reports: None Oncologic (Cancer) History: Reports: None Dermatologic History: Reports: None - Infectious Disease History Infectious Disease History: Reports: None - Past Surgical History Head Surgeries/Procedures: Reports: None Cardiovascular Surgical History: Reports: Coronary Artery Stent Female Surgical History: Reports: None Musculoskeletal Surgical History: Reports: Other (See Below) Other Musculoskeletal Surgeries/Procedures:: back sx Social & Family History - Family History Family Medical History: Noncontributory - Tobacco Use Smoking Status *Q: Current Every Day Smoker Years of Tobacco use: 27 Packs/Tins Daily: 1 - Caffeine Use Caffeine Use: Reports: None - Recreational Drug Use Recreational Drug Use: No ED ROS GENERAL - Review of Systems Review Of Systems: ROS reveals no pertinent complaints other than HPI. ED EXAM, GENERAL - Physical Exam Exam: See Below (See dictation) Course - Vital Signs Last Recorded V/S: Last Vital Signs Temp 35.8 C 11/08/18 19:42 Pulse 83 11/08/18 19:42 Resp 18 11/08/18 19:42 BP 158/99 H 11/08/18 19:42 Pulse Ox 95 11/08/18 19:42 - Orders/Labs/Meds Orders: Active Orders 24 hr Category Date Time Status EKG Documentation Completion [RC] STAT Care 11/08/18 20:23 Active RT Aerosol Therapy [RC] ASDIRECTED Care 11/08/18 20:24 Inactive Abdomen Series w Chest 1V [CR] Stat Exams 11/08/18 20:24 Stop Req AMYLASE [CHEM] Stat Lab 11/08/18 20:23 Stop Req CBC WITH AUTO DIFF [HEME] Stat Lab 11/08/18 20:23 Stop Req COMPREHENSIVE METABOLIC PN,CMP [CHEM] Stat Lab 11/08/18 20:23 Stop Req LIPASE [CHEM] Stat Lab 11/08/18 20:23 Stop Req TROPONIN I [CHEM] Stat Lab 11/08/18 20:23 Stop Req UA RFX JAQUAN AND CULT IF INDIC [URIN] Stat Lab 11/08/18 20:24 Stop Req Meds: Medications Discontinued Medications Generic Name Dose Route Start Last Admin Trade Name Freq PRN Reason Stop Dose Admin Albuterol/Ipratropium 3 ml 11/08/18 20:24 Duoneb 3.0-0.5 Mg/3 Ml NEB 11/08/18 20:25 ONETIME ONE Sodium Chloride 1,000 mls @ 999 mls/hr 11/08/18 20:24 Normal Saline IV 11/08/18 21:24 STAT ONE Ondansetron HCl 4 mg 11/08/18 20:24 Zofran IVPUSH 11/08/18 20:25 ONETIME ONE Pantoprazole Sodium 80 mg 11/08/18 20:24 Protonix Iv IVPUSH 11/08/18 20:25 .BOLUS ONE Sodium Chloride 10 ml 11/08/18 20:24 Saline Flush FLUSH ASDIRECTED PRN Keep Vein Open Sodium Chloride 2.5 ml 11/08/18 20:24 Saline Flush FLUSH ASDIRECTED PRN Keep Vein Open Departure - Departure Time of Disposition: 20:50 Disposition: Home, Self-Care 01 Condition: Good Clinical Impression: Abdominal pain, vomiting, and diarrhea - Discharge Information Referrals: PCP,None [Primary Care Provider] - Forms: ED Department Discharge Additional Instructions: The following information is given to patients seen in the emergency department who are being discharged to home. This information is to outline your options for follow-up care. We provide all patients seen in our emergency department with a follow-up referral. The need for follow-up, as well as the timing and circumstances, are variable depending upon the specifics of your emergency department visit. If you don't have a primary care physician on staff, we will provide you with a referral. We always advise you to contact your personal physician following an emergency department visit to inform them of the circumstance of the visit and for follow-up with them and/or the need for any referrals to a consulting specialist. The emergency department will also refer you to a specialist when appropriate. This referral assures that you have the opportunity for followup care with a specialist. All of these measure are taken in an effort to provide you with optimal care, which includes your followup. Under all circumstances we always encourage you to contact your private physician who remains a resource for coordinating your care. When calling for followup care, please make the office aware that this follow-up is from your recent emergency room visit. If for any reason you are refused follow-up, please contact the [facility] emergency department at and ask to speak to the emergency department charge nurse. [facility] Primary care- Internal [place] [address] Push fluids and eat bland diet as we discussed. Return to ER if you decide you want further care and evaluation and use Zofran you have been prescribed for the nausea. Please call and schedule a follow-up appointment - My Orders Last 24 Hours: My Active Orders 11/08/18 20:23 EKG Documentation Completion [RC] STAT AMYLASE [CHEM] Stat CBC WITH AUTO DIFF [HEME] Stat COMPREHENSIVE METABOLIC PN,CMP [CHEM] Stat LIPASE [CHEM] Stat TROPONIN I [CHEM] Stat 11/08/18 20:24 RT Aerosol Therapy [RC] ASDIRECTED Abdomen Series w Chest 1V [CR] Stat UA RFX JAQUAN AND CULT IF INDIC [URIN] Stat - Assessment/Plan Last 24 Hours: My Active Orders 11/08/18 20:23 EKG Documentation Completion [RC] STAT AMYLASE [CHEM] Stat CBC WITH AUTO DIFF [HEME] Stat COMPREHENSIVE METABOLIC PN,CMP [CHEM] Stat LIPASE [CHEM] Stat TROPONIN I [CHEM] Stat 11/08/18 20:24 RT Aerosol Therapy [RC] ASDIRECTED Abdomen Series w Chest 1V [CR] Stat UA RFX JAQUAN AND CULT IF INDIC [URIN] Stat
[2018-11-08 21:30] VITALS: BP 150/94
== END 2018-11-08 21:12 | disposition home or self-care (01) ==
LOC: MW.ED 19:42
DX: R10.9 Unspecified abdominal pain (principal); R11.2 Nausea with vomiting, unspecified; R19.7 Diarrhea, unspecified; I11.0 Hypertensive heart disease with heart failure; I50.9 Heart failure, unspecified; I48.91 Unspecified atrial fibrillation; E66.9 Obesity, unspecified; F17.210 Nicotine dependence, cigarettes, uncomplicated; Z88.0 Allergy status to penicillin; Z88.5 Allergy status to narcotic agent; Z79.82 Long term (current) use of aspirin; Z79.899 Other long term (current) drug therapy
CPT/HCPCS: 93005; 99283; 99284-25